=== PATIENT | female | born 1965 | race Two or more races ===

== ENCOUNTER 2022-05-06 13:54 | Outpatient (CLI) | payer OTHER | END 2022-05-06 14:02 | disposition home or self-care (01) | LOC: RAD 13:54 | DX: M40.57 Lordosis, unspecified, lumbosacral region (principal) ==

== ENCOUNTER 2023-04-08 13:36 | Outpatient (CLI) | payer OTHER | END 2023-04-08 13:51 | disposition home or self-care (01) | LOC: SONOGRAMA 13:36 | PROVIDERS: ATTEND Obstetrics & Gynecology | DX: N83.01 Follicular cyst of right ovary (principal); N83.02 Follicular cyst of left ovary ==

== ENCOUNTER 2023-06-16 13:12 | Outpatient (CLI) | payer OTHER | END 2023-06-16 13:13 | disposition home or self-care (01) | LOC: NUCLEAR 13:12 | PROVIDERS: ATTEND Internal Medicine Endocrinology, Diabetes & Metabolism | DX: M81.0 Age-related osteoporosis without current pathological fracture (principal) ==

== ENCOUNTER 2023-06-16 13:42 | Outpatient (CLI) | payer OTHER | END 2023-06-16 13:57 | disposition home or self-care (01) | LOC: SONOGRAMA 13:42 | PROVIDERS: ATTEND Internal Medicine Endocrinology, Diabetes & Metabolism | DX: E04.1 Nontoxic single thyroid nodule (principal) ==

== ENCOUNTER 2025-06-27 13:29 | Outpatient (CLI) | payer OTHER | END 2025-06-27 13:33 | disposition home or self-care (01) | LOC: SONOGRAMA 13:29 | PROVIDERS: ATTEND Internal Medicine Endocrinology, Diabetes & Metabolism | DX: E04.1 Nontoxic single thyroid nodule (principal) ==

== ENCOUNTER 2025-07-09 10:27 | Outpatient (CLI) | payer OTHER | END 2025-07-09 10:29 | disposition home or self-care (01) | LOC: SONOGRAMA 10:27 | PROVIDERS: ATTEND Internal Medicine Endocrinology, Diabetes & Metabolism | DX: R74.01 Elevation of levels of liver transaminase levels (principal); K74.00 Hepatic fibrosis, unspecified ==